=== PATIENT | male | born 1960 | race Caucasian/White ===

== ENCOUNTER 2016-07-27 11:17 | Day surgery (SDC) | payer OTHER ==
[~2016-07-27] VITALS: Ht 180.3 cm; Wt 64.8 kg
[2016-07-27] VITALS (9 sets, daily range): BP systolic 94–120; BP diastolic 56–80; PULSE 63–94; RESP 13–16; O2SAT 93–100
--- NOTE | 2016-07-27 07:59 | PCM.HPANE ---
Patient Data Surgeon Admitting Provider: Attending Provider:Julian Fuller MD Primary Care Physician:Maile Castaneda Other Provider:David Forte Anesthesia Reason for Visit Right Arm Lipoma Ht/WT & BMI Height (Feet): 5 Height (Inches): 11 Weight (Kilograms): 66.67 Body Mass Index 20.00 Allergies Coded Allergies: haloperidol (Verified Allergy, Intermediate, Muscular rigidity, 07/12/15) Past Anesthesia History Anesthesia History: Denies:: Abnormal Airway, Anesthesia Reactions, Difficult Intubation, Fam Anesthesia Reaction, Fam Malignant Hypertherm Diabetes History Hx Diabetes?: No MRSA MRSA: No Medications Hypertension Medication: No Home Meds Incl Beta Harriet: No Reported Medications Amitriptyline 25 Mg Tab25 Mg PO HS Ref 0 07/25/16 Albuterol Sulfate (Ventolin HFA Inhaler)200 Puff/18 Gm Inhaler1 Puff INH Q4 PRN For Wheezing #1 INHALER Ref 0 07/25/16 Terazosin 10 Mg Wnzsrsd55 Mg PO HS Ref 0 07/25/16 Meclizine (Bonine)25 Mg Tab.chew25 Mg PO PRN For Nausea 07/25/16 Lorazepam 0.5 Mg Tablet0.5 Mg PO TID PRN For Anxiety Ref 0 07/25/16 Sumatriptan Succinate 50 Mg Musrlt68 Mg PO Q2H PRN migraines MR q2h/ NTE 200mg/24hr 07/25/[address] (Protonix)20 Mg Coesxo14 Mg PO DAILY Ref 0 07/25/16 Methocarbamol 750 Mg Ieqclv197 Mg PO Q8H PRN For Spasm Ref 0 07/25/16 Meloxicam 15 Mg Pmvabj65 Mg PO DAILY 30 Days Ref 0 07/25/16 Discontinued Reported Medications Albuterol HFA (Proair HFA)8.5 Gm Hfa.aer.ad2 Puffs INHALATION Q4H SHORTNESS OF BREATH #1 INHALER 07/12/15 Tiotropium [place] (Spiriva Respimat)1.25 Mcg/Actuation Mist.inhal4 Gm IH BID 07/12/15 Hydrocodone-Acetaminophen 10-325 mg 1 Each Tablet1 Tablet PO QID PRN For Pain Ref 0 07/12/15 Simvastatin 10 Mg Fogqhr97 Mg PO HS Ref 0 07/12/[address] (Protonix)20 Mg Utautw94 Mg PO BID Ref 0 07/12/15 Gabapentin 800 Mg Rfqgig217 Mg PO TID Ref 0 07/12/15 Escitalopram Oxalate (Lexapro)5 Mg/5 Ml Mreryvmf14 Mg PO DAILY #1 BOTTLE Ref 0 07/12/15 Aripiprazole (Abilify)10 Mg Vydzue09 Mg PO DAILY Ref 0 07/12/15 Discontinued Scripts Escitalopram Oxalate (Lexapro)10 Mg Ohnneu41 Mg PO DAILY #10 TABLET Ref 0 Prov:Shamir Martino MD 07/13/15 Gabapentin 800 Mg Otglne400 Mg PO TID #30 TABLET Ref 0 Prov:Shamir Martino MD 07/13/15 Aripiprazole (Abilify)10 Mg Urvphj65 Mg PO DAILY #10 TABLET Ref 0 Prov:Shamir Martino MD 07/13/15 History History of ENT Problems?: No HEENT History: Denies:: Abnormal Airway Cataracts Difficult Intubation Dysphagia Glaucoma Hearing Problem Sinus Problem TMJ Denture Type: Full- Upper Full- Lower Teeth Condition: Missing Teeth Hx of Heart Problems?: Yes Cardiovascular History: Denies:: Atrial Fibrillation Congestive Heart Failure Heart Murmur (born with murmur "grew out of it") Hypertension Irregular Heartbeat Hx of Respiratory Problem?: Yes Respiratory History: Positive for:: COPD Use of Inhalers / NEBS Denies:: Asthma Emphysema Oxygen Administration Pneumonia Tuberculosis Use of C-PAP Machine Hx Neurologic Problems?: Yes Neurological History: Positive for:: Headaches (2-3 x weekly) Denies:: Alzheimer's Disease CVA Multiple Sclerosis Parkinson's Disease Seizures TIA Hx of GI Problems?: Yes Gastrointestinal History: Positive for:: Gastroesphageal Reflux Gastrointestinal Bleeding (hx of vomiting blood, - 3-4 years ago) Heartburn Denies:: Cirrhosis Gall Bladder Disease Hepatitis Hiatal Hernia Liver Disease Rectal Bleeding Hx of Problems?: No Genitourinary History: Denies:: Kidney Stones Urinary Tract Infection Male Hx: Positive for:: Prostate Problems (BPH) Denies:: Scrotal Mass Testicular Surgery Skin History: Positive for:: History Skin Disorders? (lipoma right deltoid current admission problem) Hx Musculoskeletal Problems?: Yes Musculoskeletal History: Positive for:: Back Injury (chronic back spasms, hx of 4 crushed vertebra-) Musculoskeletal Trauma (hx of right rotator cuff) Osteoarthritis Denies:: Fibromyalgia Joint Replacement Systemic Lupus Hx of Psycho/Social Problems?: Yes Psycho Social History: Positive for:: Anxiety (PTSD) Bipolar Disorder Hx Depression Suicide Attempt (hx of per EMR) Hx Surgeries?: Yes (left shoulder surg on Jun 03 2015) Hx Any Other Health Problems?: Yes Other History: Denies:: Cancer Thyroid Disease History Blood Transfusions: Positive for:: Accept Blood Products? Denies:: Blood Transfusions Hx Diabetes: No Hx Alcohol Use: NoHx Substance Use: Yes (Marijuana daily) Smoking Status: Current Every Day Smoker Have You Smoked inLast 12 mo: Yes Stop/Bang S-Snoring: Do You Snore Loudly: No T-Tired: feel tired, fatigued: No O-Obsered: Observed not breath: No P-Blood Pressure: treated: No B- Body Mass Index > 35 kg/m2: No A- Age over 50: Yes N- Neck Large Circumference: No G- Gender Male: Yes JUDI Total Score: 2 Risk Assessment Category Category 1A: Patient has history of documented sleep apnea, and HAS NOT received any narcotic, sedative or anesthesia administration during this stay. Category 1B: Patient has history of documented sleep apnea, and HAS received any narcotic , sedative or anesthesia administration during this stay Category 2: Patient has SUSPECTED Obstructive Sleep Apnea, and HAS received any narcotic , sedative or anesthesia administration during this stay. Category 3: Patient has SUSPECTED Obstructive Sleep Apnea and HAS NOT received narcotic, sedative or anesthesia administration during this stay. Category 4: Outpatient in Procedural Areas with known sleep apnea or who screen positive for High Risk via the STOP/BANG questionnaire. Exam Exam General Appearance: Alert, Oriented X3, Cooperative, No Acute Distress HEENT/AIRWAY: MP 2 Lungs: Clear to Auscultation Heart: Exam Unremarkable Plan Impression Patient chart reviewed, patient interviewed and anesthestic plan with risks, benefits, and alternatives discussed, and informed consent obtained. ASA Physical Status: ASA2 Mod Systemic Disease Anesthetic Plan: GA Bene/Risks/Altern/Consents: Yes HP Complete Prior to Induction: Yes Mala Benitez DO Jul 27, 2016 07:59 Mervin Beasley MD Jul 27, 2016 12:43
[~2016-07-27 11:17] MED LIST: ALBU18HF INH; AMT25T PO; LORA0.5T PO; MECL-114 PO; MELO-253 PO; METH750T3 PO; PANT20T PO; SUMA50TA2 PO; TERA10CA5 PO
[2016-07-27] MEDS ORDERED: Ondansetron 2 mg/mL 2 mL Inj ONE (11:18)
[2016-07-27] MEDS ORDERED: Propofol 10,000 mCg/mL 20 mL Inj ONE (11:18)
[2016-07-27] MEDS ORDERED: Succinylcholine Chloride 20 mg/mL 5 mL Inj ONE (11:18)
[2016-07-27] MEDS ORDERED: fentaNYL-PF 50 mCg/mL 2 mL Inj ONE (11:18)
[2016-07-27] MEDS: Lactated Ringer's 1,000 ML IV SCH ×2 (11:25→12:04)
[2016-07-27] MEDS ORDERED: Bupivacaine-MPF 0.25%/EPI 30 mL Inj INJ ONE (12:31)
[2016-07-27] MEDS ORDERED: Lactated Ringer's 500 ML IV PRN (12:39)
[2016-07-27] MEDS ORDERED: Lactated Ringer's 1,000 ML IV SCH (12:39)
[2016-07-27] MEDS ORDERED: Phenylephrine 10,000 mCg/mL Inj IVPUSH PRN (12:40)
[2016-07-27] MEDS ORDERED: Dexamethasone 4 mg/mL Inj IVPUSH PRN (12:40)
[2016-07-27] MEDS ORDERED: EPHEDrine Sulfate 50 mg/mL Inj IVPUSH PRN (12:40)
[2016-07-27] MEDS ORDERED: Ondansetron 2 mg/mL 2 mL Inj IVPUSH PRN (12:40)
[2016-07-27] MEDS ORDERED: fentaNYL-PF 50 mCg/mL 2 mL Inj IVPUSH PRN (12:40)
[2016-07-27] MEDS ORDERED: MetoCLOpramide 5 mg/mL 2 mL Inj IVPUSH PRN (12:40)
[2016-07-27] MEDS ORDERED: HYDROmorphone 1 mg/mL Inj IVPUSH PRN (12:40)
--- NOTE | 2016-07-27 13:13 | PCM.ANEP1 ---
Post Anesthesia Phase 1 PACU Phase 1 Assessment Vital Signs Vital Signs Date Time Temp Pulse Resp B/P Pulse Ox O2 Delivery O2 Flow Rate FiO2 07/27/16 13:05 73 13 94/60 97 Simple Mask 10 07/27/16 13:00 77 14 97/61 98 Simple Mask 10 07/27/16 12:55 77 15 95/63 98 Simple Mask 10 07/27/16 12:50 36.3 106/64 07/27/16 11:30 36.1 63 16 111/64 100 Room Air Anesthetic Administered: GA Level of Alertness: Sleepy, easy to arouse DAILEY's with Equal Strength: Yes Pain: No Nausea or Vomiting: No Cardiovascular Function and Hy: No Oxygen Delivery: Simple Mask Lungs: Clear to Auscultation Dermatome Level: Full Sensation Complications: No Mervin Beasley MD Jul 27, 2016 13:13
[2016-07-27] MEDS ORDERED: oxyCODONE-Acetamin 5-325 mg Tablet PO PRN (13:20)
--- NOTE | 2016-07-27 22:20 | OP ---
[address] [address] OPERATIVE REPORT PATIENT: SARIAH PEGUERO : 1960 MR#: [id number] ADMIT: 07/27/2016 JOB ID: [id number] DATE OF SURGERY: 07/27/2016 ANESTHESIA: General. PREOPERATIVE DIAGNOSIS(ES): Right deltoid lipoma. POSTOPERATIVE DIAGNOSIS(ES): Right deltoid lipoma. OPERATIVE PROCEDURE: Excision of right deltoid lipoma measuring 4 x 4 cm. SURGEON: Julian Fuller MD. SAUSAGE CANNER: Misael Potter PA-C (the medical clerical assistant was required for the same and timely completion of the case). COMPLICATIONS: None. ESTIMATED BLOOD LOSS: None. SPECIMEN: Right shoulder lipoma. FINDINGS: There was a right shoulder lipoma that was very superficial and adherent to both the skin and the fascia below, measuring approximately 4 x 4 cm. This was excised. INDICATIONS: The patient is a 55-year-old man who has had a right shoulder lump that has been slowing been growing over the past few years. He found it bothersome and wanted it removed. OPERATIVE TECHNIQUE: The patient was taken to the operating room and placed in supine position. General anesthesia was administered. The right shoulder was prepped and draped in standard surgical fashion. A procedure pause performed. I began with a longitudinal incision over the lipomatous mass. The lipoma was encountered directly beneath the skin. I then raised skin flaps both medially and laterally and shelled out the lipoma piecemeal as it was adherent to all the surrounding tissue. The skin was then closed using 4-0 Monocryl. Local anesthetic was injected. The entire procedure was well tolerated without complication.
--- NOTE | 2016-07-31 11:39 | PATH ---
SURGICAL PATHOLOGY Attending Physician:Julian Fuller MD CASE STATUS: Signed Out PATIENT NAME: SARIAH PEGUERO PID: [id number] : 1960 DATE COLLECTED:07/27/2016 20:26 SPECIMEN: Soft Tissue, Lipoma CLINICAL HISTORY: RIGHT ARM LIPOMA 1). RIGHT SHOULDER LIPOMA FINAL DIAGNOSIS: 1.SPECIMEN DESIGNATED RIGHT SHOULDER LIPOMA: MATURE ADIPOSE TISSUE CONSISTENT WITH LIPOMA. ICD10 CODE D17.21 GROSS DESCRIPTION: The specimen is received in one formalin filled container labeled with the patient's name, sublabeled "right shoulder" and consists of 4 portions of yellow-phan soft tissue which aggregate to 4.5 x 3.0 x 1.6 CM the specimen is inked blue. 3 uniforms sales representative sections are submitted in one cassette. 07/27/2016 [facility] MICRO DESCRIPTION: See diagnosis. ICD-9 CODES: CPT CODES: 1: 65330 Electronically Signed Out Bradly Perla MD [facility] [address], [place] [address] Technical component performed at [facility], [facility] [address], [place], [address]
== END 2016-07-27 23:59 | disposition home or self-care (01) ==
LOC: SAS 11:17
PROVIDERS: ATTEND General Practice
DX: D17.21 Benign lipomatous neoplasm of skin and subcutaneous tissue of right arm (principal); J44.9 Chronic obstructive pulmonary disease, unspecified; K21.9 Gastro-esophageal reflux disease without esophagitis; F43.10 Post-traumatic stress disorder, unspecified; N40.0 Benign prostatic hyperplasia without lower urinary tract symptoms; F17.210 Nicotine dependence, cigarettes, uncomplicated
CPT/HCPCS: 23076; 88304; J0330; J2250; J2405; J3010; J7120

== ENCOUNTER 2016-08-22 05:09 | Emergency (ER) | payer OTHER ==
[~2016-08-22] VITALS: Ht 180.3 cm; Wt 65.5 kg
[2016-08-22 05:10] VITALS: BP 108/73; PULSE 104; RESP 17; O2SAT 100
--- NOTE | 2016-08-22 06:23 | ED.REPORT ---
HPI-Extremity Problem Upper Date of Service August 22, 2016 ED Provider: Luis Muhammad DO 55 year old male presents to the ER complaining of right hand pain status post mechanical ground level fall on outstretched hand yesterday. Pain has prevented him from sleeping, which is the reason for his visit today. Patient denies any further injuries. Nursing Notes Stated Complaint: RT HAND POSSIBLY BROKEN Chief Complaint: Extremity Trauma Nursing Notes Reviewed: Yes Allergies: Coded Allergies: haloperidol (Verified Allergy, Intermediate, Muscular rigidity, 07/12/15) aspirin (Verified Allergy, Mild, 08/22/16) Scheduled Amitriptyline (Amitriptyline) 25 Mg Tab 25 MG PO HS Meloxicam (Meloxicam) 15 Mg Tablet 15 MG PO DAILY Pantoprazole DR (Protonix) 20 Mg Tablet 20 MG PO DAILY Terazosin (Terazosin) 10 Mg Capsule 10 MG PO HS Scheduled PRN Albuterol Sulfate (Ventolin HFA Inhaler) 200 Puff/18 Gm Inhaler 1 PUFF INH Q4 PRN PRN For Wheezing Hydrocodone-Acetaminophen 5-325 mg (Hydrocodone-Acetaminophen 5-325 mg) 1 Each Tablet 1 TABLET PO QID PRN PRN For Pain Lorazepam (Lorazepam) 0.5 Mg Tablet 0.5 MG PO TID PRN PRN For Anxiety Meclizine (Bonine) 25 Mg Tab.chew 25 MG PO PRN For Nausea Methocarbamol (Methocarbamol) 750 Mg Tablet 750 MG PO Q8H PRN PRN For Spasm Sumatriptan Succinate (Sumatriptan Succinate) 50 Mg Tablet 50 MG PO Q2H PRN PRN migraines MR q2h/ NTE 200mg/24hr General Time Seen by MD: 06:13 Chief Complaint Hand injury right Hx Obtained From: Patient Arrived By: Walk-in Onset Occurred: Yesterday Symptom Duration: Since onset Caused by: Accidental, Fall on ground Context: Occurred at: Home injury Location: : Hand right Quality: Painful Severity: Current: Moderate Severity: Maximum: Moderate Pertinent Negative: Pt denies other symptoms Past Medical History Past Medical History Per patient: Bipolar disorder with psychosis Antisocial personality disorder PTSD Chronic pain Past Surgical History rotator cuff repair Smoking History Current Every Day Smoker Social History Patient recently bused across the country from [place]. Drug Use: THC Other Social History: From out of town, Homeless Ambulatory Status Independent Review of Systems Musculoskeletal: Reports: Extremity pain (Right Hand), Denies: Back pain, Joint pain, Lumbar pain, Neck pain, Thoracic pain Complete sys rev & neg: except as marked. Physical Exam Initial Vital Signs Vital Signs (First) Date Time Temp Pulse Resp B/P Pulse Ox O2 Delivery O2 Flow Rate FiO2 08/22/16 05:10 37.1 104 17 108/73 100 Room Air Initial VS: Reviewed General/Constitutional: Well-developed, Well-nourished Head / Eyes: Atraumatic, Normocephalic, PERRL Neck: Supple, Non-tender, Full range of motion Abdomen / GI: Soft, Non-tender, No guarding, No rebound, No distention Lower Extremities: Vascular intact, Neuro intact, No swelling, No tenderness Skin: Warm, Dry, No cyanosis Neurologic: Alert, Oriented, Nonfocal Psychiatric: Mood/affect normal, Behavior normal, Normal thought content Wrist / Hand: Full range of motion, Neurologic intact, Vascular intact Right Hand: Positive: Swelling present... (along hand overlying the 5th metacarpal), Tenderness present... (Moderate) Interpretation & Diagnostics X-Ray Interpretation Xray Interpretation: Fracture at the base of the 5th metacarpal. X-Ray Ordered: Hand right Interpretation / Wet Read by: Wet read ED physician Procedures Splint Application - Fx Mgt Time: 06:33 Procedure Performed by: ED physician, [employer] Supervisor Precise Anatomic Location: right wrist/hand Type of Immobilization: Ulnar gutter Definitive Fracture Care: Pain control, Splint Post-Procedure / Complications: Cap refill normal, Post splint vascular nl, Post splint neuro nl, Condition improved, Tolerated procedure well, Patient stable Splint Post-Application Eval Extremity Condition: Cap refill < 2 sec, Distal sensation intact, Distal motor Intact, No compartment syndrome Re-Eval/Medical Decision Med Decision/Clinical Course Fracture at the base of the fifth metacarpal. Splinted, neurovascularly intact afterwards. Return and follow-up precautions given. Vicodin prescribed. Re-Evaluation/Progress : Time of Eval: 06:33 Re-Evaluation/Progress Note: Discussed physical examination findings and plan to discharge. Patient is amenable to the plan. Return precautions given. All other questions addressed. Counseled Regarding: Diagnosis, Need for follow-up, When/why to return to ED Discharge & Departure Impression: Primary Impression: Boxers fracture Disposition: Home Discharge Condition All VS Reviewed: Yes Condition: Stable Patient Instructions: Hand Fracture (GEN) Additional Instructions: Wear the splint provided. Take the Vicodin as prescribed for your pain. Return to the ER if you develop new or concerning symptoms. Referrals: Maile Castaneda (PCP) Kwadwo Attestation Portions of this note were transcribed by Kelby Baires. I, Dr. Muhammad, personally performed the history, physical exam and medical decision-making; I reviewed and confirmed the accuracy of the information in the transcribed note. Signed by: Kwadwo Lindsey, 08/22/2016 and 06:51 copies to: Maile Castaneda Timothy S DO August 22, 2016 06:23 KELBY BAIRES August 22, 2016 06:33
[2016-08-22] MEDS ORDERED: HYDR-4003 PO (06:47)
[2016-08-22 07:09] VITALS: BP 115/82; PULSE 105; RESP 18; O2SAT 98
--- NOTE | 2016-08-22 08:38 | DRSVH ---
PROCEDURE: X-RAY RIGHT HAND, MINIMUM THREE VIEWS ([id number]) INDICATIONS: PAIN AND SWELLING TECHNIQUE: 3 views of the hand(s) acquired. COMPARISON: None. FINDINGS: Bones: Remote fracture involves the fifth metacarpal head/neck. Acute, transverse arch fracture sinc e her the base of the fifth metacarpal bone with minimal ulnar displacement of the distal fracture co mponent. Minimal volar angulation also is present. Adjacent soft tissue swelling. Soft tissues: No suspicious soft tissue calcifications. IMPRESSION: Minimally displaced fracture involving the base of the fifth metacarpus. Dictated by: Crow Castelan [facility] Interpreted: Soraya Johnson MD on 08/22/2016 at 8:36 Transcribed by: ASA on 08/22/2016 at 8:37 Approved by: Soraya Johnson MD, PhD on 08/22/2016 at 9:20
== END 2016-08-22 06:47 | disposition home or self-care (01) ==
LOC: SED 05:09
DX: S62.316A Displaced fracture of base of fifth metacarpal bone, right hand, initial encounter for closed fracture (principal); W01.0XXA Fall on same level from slipping, tripping and stumbling without subsequent striking against object, initial encounter; Y93.01 Activity, walking, marching and hiking; Y99.8 Other external cause status; Y92.019 Unspecified place in single-family (private) house as the place of occurrence of the external cause; F43.10 Post-traumatic stress disorder, unspecified; F12.10 Cannabis abuse, uncomplicated; F17.200 Nicotine dependence, unspecified, uncomplicated; G89.29 Other chronic pain; Z59.0 Homelessness; Z88.6 Allergy status to analgesic agent; Z88.8 Allergy status to other drugs, medicaments and biological substances